=== PATIENT | female | born 1990 | race Caucasian/White ===

== ENCOUNTER 2019-11-08 14:04 | Emergency (ER) | payer OTHER, SELFPAY ==
[2019-11-08 14:05] VITALS: BP 141/98; PULSE 118; RESP 20; TEMP 36.8; O2SAT 100; BMI 44.2
--- NOTE | 2019-11-08 14:31 | HMH.EDUTC ---
[facility] Disposition Clinical Impression: Strep throat Otitis media Qualifiers: Otitis media type: unspecified Laterality: left Qualified Code(s): H66.92 - Otitis media, unspecified, left ear Disposition: Home, Self-Care Condition on Discharge: Good Instructions: Middle Ear Infections (Alternative Therapy), Sore Throat, Middle Ear Infection, Cough, Amoxicillin, DI for Strep Throat, Strep Throat Additional Instructions: *Monitor Temp, Over the counter Motrin or Tylenol as directed/as needed Tylenol every 4 hours and Motrin every 6 hours (as long as your family doctor has told you that you can take it) for fever or pain. and straight to ER if unable to lower temp less than 101.0 after medication given *Warm salt water gargles may help to soothe the throat *Throat Lozenges *Warm fluids *Sleep elevated *Humidifier/Vaporizer *If you did not take Penicillin shot or was unable to, start taking antibiotic immediately and make sure that you take it for the FULL length of time although you should start to feel better in 24-48 hours *change toothbrush and toothpaste 24-48 hours after starting to take antibiotics so you do not reinfect yourself Monitor Temp. Tylenol and/or Ibuprofen as needed. ER if fever is no less than 101 despite alternating Tylenol and Ibuprofen * Encourage fluids, water, Gatorade, powerade, pedialyte if /toddler/or child *Cold fluids, popsicles and ice cream may feel good on his throat Your throat swab was sent for culture. Those results are typically sent to your primary care. Be sure to follow up in 2-3 days with your family doctor/primary care physician if no improvement so they can review those result and treat if necessary. If you don?t have a primary care doctor, I recommend you get one but in the mean time, you will have to return to a walk in clinic Follow up IMMEDIATELY for new or worsening symptoms or no Noticeable improvement over the next 48-72 hours. 911 for difficulty breathing or swallowing Prescriptions: Amoxicillin [Amoxicillin 500mg Cap] 500 mg PO TID #30 cap Transmission Status: Pending to [facility] Referrals: Jesenia Whitman PA [Primary Care Provider] - As needed Time of Disposition: 14:56 Medical Decision Making - George Inquiry Pt receiving controlled substance: No George was queried for this patient: No Vital Signs: 11/08/19 14:05 Temperature 98.2 F Temperature Source Oral Pulse Rate [Radial] 118 H Respiratory Rate 20 Blood Pressure [Right Arm] 141/98 H Blood Pressure Mean [Right Arm] 112 Blood Pressure Source [Right Arm] Automatic Cuff Blood Pressure Position [Right Arm] Sitting 02 Sat by Pulse Oximetry 100 Oxygen Delivery Method Room Air - Lab Data Lab results reviewed: Yes: I reviewed the patient's lab results. Lab Results 11/08/19 14:36: Strep Scn Rapid Clinic Positive A [facility] HPI - General Stated complaint: Cough,bilateral ear pain Time Seen by Provider: 11/08/19 14:31 Mode of Arrival: Ambulatory Source of Information: Patient Limitations: No Limitations Description of Symptoms (Recalled from Triage Doc. by RN): COUGH, EAR PAIN, WEAKNESS X 2 DAYS HEENT Symptoms (Recalled from RN notes): Yes Resp Symptoms (Recalled from RN notes): No Skin Symptoms (Recalled from RN notes): No MS Symptoms (Recalled from RN notes): No Functional Status (Recalled from RN notes): WNL - History of Present Illness Provider Complaint: Patient states that she has been having pain in both ears but worse in her left ear State that also she has been having cough and throat irritation Denies known fever, states that she has felt more tired for the last couple of days Denies known exposure to anyone with COVID19 - Related Data Previous Rx's Medication Instructions Recorded phentermine 37.5 mg tablet 37.5 mg PO DAILY #30 tab 12/23/18 Amoxicillin [Amoxicillin 500mg 500 mg PO TID #30 cap 11/08/19 Cap] Allergies Allergy/AdvReac Type Severity R
[2019-11-08 14:48] LABS: UTC Strep Screen (Rapid) Positive (Negative)
[2019-11-08 15:07] VITALS: BP 141/98; PULSE 118; RESP 20; TEMP 36.8; O2SAT 100
== END 2019-11-08 15:08 | disposition home or self-care (01) ==
PROVIDERS: Emergency Provider Nurse Practitioner; PCP Physician Assistant
DX: J02.0 Streptococcal pharyngitis (principal); H66.92 Otitis media, unspecified, left ear; F17.210 Nicotine dependence, cigarettes, uncomplicated
CPT/HCPCS: 87880; 99201; 99202

== ENCOUNTER → 2020-02-04 12:14 | Outpatient (CLI) | payer OTHER, SELFPAY ==
--- NOTE | 2020-02-04 12:35 | ECG_ITS ---
APPROVED REPORT Exam: Resting ECG HR:61 bpm ECG Measurements Heart Rate 61 AXES CO 160 P 33 QRSd 90 QRS 68 QT 388 T 39 QTc 390 <Conclusion> Sinus rhythm with marked sinus arrhythmia Otherwise normal ECG Electronically signed by : Abebe Frederick, 02/06/2020 12:31:19
[2020-02-04 12:36] LABS: Basophils % 0.3 % (0.1-2.0); Eosinophils # 0.3 K/mm3 (0.0-0.4); Eosinophils % 2.1 % (0.1-12.0); Hematocrit 39.7 % (37.0-47.0); Hemoglobin 13.4 g/dL (12.2-16.2); Lymphocytes # 2.9 K/mm3 (0.7-4.5); Lymphocytes % 23.2 % (10-50); Mean Corpuscular HGB Conc 33.8 g/dL (31.8-35.4); Mean Corpuscular Hemoglobin 29.3 pg (27.0-31.2); Mean Corpuscular Volume 86.7 fl (81-99); Monocytes # 0.6 K/mm3 (0.1-1.0); Monocytes % 4.7 % (1.7-9.3); Neutrophils # 8.8 K/mm3 (1.8-7.8); Neutrophils % 69.7 % (37.0-80.0); Platelet Count 304 K/mm3 (142-424); Red Blood Count 4.58 M/mm3 (4.20-5.40); Red Cell Distribution Width 14.2 % (11.5-17.5); White Blood Count 12.6 K/mm3 (4.8-10.8)
[2020-02-04 13:00] LABS: Chloride 104 mmol/L (98-107); Sodium 139 mmol/L (136-145)
[2020-02-04 13:01] LABS: Potassium 4.2 mmoL/L (3.5-5.1)
[2020-02-04 13:04] LABS: Anion Gap 13.2 mEq/L (5-15); Blood Urea Nitrogen 10 mg/dl (7-17); Calcium 9.3 mg/dl (8.4-10.2); Carbon Dioxide 26 mmol/L (22.0-30.0); Estimated Glomerular Filt Rate 84 ml/min (>60); GFR (African American) 101 ML/MIN (>60); Glucose 124 mg/dl (74-100)
[2020-02-04 13:52] LABS: Coronavirus 19 IgG Antibody Negative (Negative); Coronavirus 19 IgM Antibody Negative (Negative)
[2020-02-04 16:59] LABS: HCG Qualitative, Serum Negative (Negative)
== END ==
PROVIDERS: Visit Provider Otolaryngology
DX: Z01.818 Encounter for other preprocedural examination (principal); H65.23 Chronic serous otitis media, bilateral; J34.3 Hypertrophy of nasal turbinates
CPT/HCPCS: 36415; 80048; 84703; 85025; 86328; 93005

== ENCOUNTER 2020-02-05 06:28 | Day surgery (SDC) | payer OTHER, SELFPAY ==
[2020-02-03 12:24] VITALS: BMI 41.6
[2020-02-05] VITALS (9 sets, daily range): BP systolic 124–146; BP diastolic 58–83; PULSE 74–86; RESP 12–20; TEMP 36.3–36.7; O2SAT 90–99
--- NOTE | 2020-02-05 09:00 | HMH.ANESCL ---
[facility] Anesthesia Checklist - Structural Data Admitted From: Home Planned Operative Procedure/s: bmt Consent for Planned Operative Procedure(s) Verified: Yes - Additional verifications Anesthesia Reactions: No Hx Blood Transfusions: No Blood Transfusion Reaction: No - Airway Assessment C-Spine Mobility Assessed: Yes TMJ Mobility Assessed: Yes Dentition: Good Dentition - Neurological Assessment Level of Consciousness: Awake, Alert, Appropriate - Anesthesia Plan Anesthesia Risk discussed: Yes Anesthesia Plan: Verified ASA Class: III Anesthesia Type: General [facility] History I have reviewed the patient's past medical history: Yes Medical History: Denies:: Cancer, Diabetes Mellitus Type 1, Diabetes Mellitus Type 2, MRSA, Seizures *Have you ever received a pneumonia vaccine?: No *Have you received a flu vaccine this season?: No Other Medical History: Denies: Blood Transfusion Reaction Anesthesia experience/problems:: none Laterality Cases: Bilateral: Myringotomy (Ear Tubes) Other Surgeries: Yes: Tubal Ligation Amputation: No Fractures: No - *Social History Last grade of school completed: High school graduate Smoking Status: Current every day smoker Tobacco Type: cigarettes # Packs/Day (cigarettes): 1 Alcohol Intake: never Substance Use Type: denies use *Occupational Status:: unemployed Housing: house Household Members: spouse, children *Travel in the last 8 weeks: None Family Hx:: Diabetes, Heart Attack
--- NOTE | 2020-02-05 09:01 | HMH.ANESI ---
[facility] Anesthesia Record Part I Intake, IV Amount: 500 Estimated blood loss (mL): 0 Urine output (mL): 0 Blood Pressure: 140/58 SaO2: 93 Pulse Rate: 74 Respiratory Rate: 14 Temperature: 97.8 F Patient is:: Awake, Stable Stable to PACU at:: 09:00
--- NOTE | 2020-02-05 12:54 | P.OP_ITS ---
Date of procedure: 02/05/20 Pre-op Diagnosis:: Bilateral serous otitis media Post-op Diagnosis:: Same Procedure performed:: Bilateral Myringotomy and tube Surgeon:: Castillo Rondon MD CELLULAR TOWER CLIMBER:: Bobby Cisneros Anesthesia: GETA Estimated blood loss (mL): 0 Operative findings:: Same Operative note:: With the patient under general anesthesia having been given 1 g of Ancef and 12 mg of Decadron and using the operating microscope for all the procedure the right ear was prepped and draped. An incision was made in the posterior inferior quadrant serous fluid was aspirated and a [place] T-tube was placed Ciprodex drops were applied. The left ear was done in the same fashion a [place] T-tube was placed and Ciprodex drops were applied there was a moderate amount of serous fluid in the left ear as well the patient tolerated the procedure well and was sent to recovery in good general condition Condition: stable Disposition: PACU Complications:: None
--- NOTE | 2020-02-06 09:35 | HMH.ANESII ---
[facility] Anesthesia Record Part II Discharge Time: 09:30 Destination: [facility] PACU nurse assessment reviewed?: Yes Patient Condition:: Good Anesthesia Complications:: None Swallowing reflex intact?: Yes Cyanosis?: No Blood Pressure: 146/80 Pulse Rate: 86 Temperature: 97.9 F Mental Status: Alert & Oriented Pain level:: 0 Nausea and/or vomitting:: None Intake, IV Amount: 1,000
[2020-02-06 09:36] VITALS: BP 146/80; PULSE 86; TEMP 36.6
== END 2020-02-05 09:54 | disposition home or self-care (01) ==
LOC: OR 06:30
PROVIDERS: PCP Physician Assistant; Visit Provider Otolaryngology
PROC: (CPT 69436; principal; 2020-02-05 08:15)
DX: H65.06 Acute serous otitis media, recurrent, bilateral (principal); Z72.0 Tobacco use; Z79.899 Other long term (current) drug therapy; G47.00 Insomnia, unspecified
CPT/HCPCS: 69436; 96374; 96375; J2405

== ENCOUNTER → 2021-01-27 19:29 | Outpatient (CLI) | payer OTHER, SELFPAY ==
[2021-01-27 19:55] LABS: Basophils # 0.1 K/mm3 (0-0.2); Basophils % 0.5 % (0.1-2.0); Eosinophils # 0.2 K/mm3 (0.0-0.4); Eosinophils % 1.7 % (0.1-12.0); Hematocrit 39.4 % (37.0-47.0); Hemoglobin 12.5 g/dL (12.2-16.2); Lymphocytes # 3.1 K/mm3 (0.7-4.5); Lymphocytes % 27.6 % (10-50); Mean Corpuscular HGB Conc 31.8 g/dL (31.8-35.4); Mean Corpuscular Hemoglobin 26.8 pg (27.0-31.2); Mean Corpuscular Volume 84.3 fl (81-99); Mean Platelet Volume 8.1 fl (7.4-10.4); Monocytes # 0.6 K/mm3 (0.1-1.0); Monocytes % 4.9 % (1.7-9.3); Neutrophils # 7.4 K/mm3 (1.8-7.8); Neutrophils % 65.3 % (37.0-80.0); Platelet Count 315 K/mm3 (142-424); Red Blood Count 4.67 M/mm3 (4.20-5.40); White Blood Count 11.3 K/mm3 (4.8-10.8)
[2021-01-27 19:57] LABS: Chloride 105 mmol/L (98-107)
[2021-01-27 19:58] LABS: Potassium 4.5 mmoL/L (3.5-5.1); Sodium 139 mmol/L (136-145)
[2021-01-27 20:00] LABS: Alanine Aminotransferase 35 U/L (12-78); Anion Gap 12.5 mEq/L (5-15); Aspartate Amino Transferase 35 U/L (14-36); Bilirubin,Total 0.3 mg/dl (0.2-1.3); Blood Urea Nitrogen 5 mg/dl (7-17); Carbon Dioxide 26 mmol/L (22.0-30.0); Estimated Glomerular Filt Rate 83 ml/min (>60); GFR (African American) 101 ML/MIN (>60)
[2021-01-27 20:01] LABS: Albumin Level 4.2 g/dl (3.5-5.0); Albumin/Globulin Ratio 1.3 (1.1-1.8); Alkaline Phosphatase 136 U/L (38-126); Calcium 9.5 mg/dl (8.4-10.2); Chol/HDL Ratio 7.6 (1-3.5); Cholesterol 205 mg/dl (140-200); Globulin 3.2 g/dL (1.3-3.2); Glucose 125 mg/dl (74-100); HDL Cholesterol 27 mg/dl (40-60); Total Protein,Serum 7.4 g/dl (6.3-8.2); Triglycerides 172 mg/dl (30-150); VLDL Cholesterol 34 mg/dL (0-40)
[2021-01-27 20:12] LABS: Direct LDL Cholesterol 137.69 mg/dL (100-129)
[2021-01-27 20:19] LABS: T4 (Thyroxine) 10.9 ug/dl (5.53-11.0)
[2021-01-27 20:32] LABS: Thyroid Stimulating Hormone 1.09 uIU/mL (0.465-4.68)
[2021-01-29 09:48] LABS: Hep A Ab, IgM Negative (Negative); Hepatitis B Core Antibody IgM Negative (Negative); Hepatitis B Surface Antigen Negative (Negative); Hepatitis C Antibody <0.1 s/co ratio (0.0-0.9)
== END ==
PROVIDERS: Visit Provider Nurse Practitioner Family
DX: G47.00 Insomnia, unspecified (principal); Z68.39 Body mass index [BMI] 39.0-39.9, adult
CPT/HCPCS: 80053; 80061; 80074; 82306; 84436; 84443; 85025

== ENCOUNTER 2023-06-07 18:11 | Emergency (ER) | payer OTHER, SELFPAY ==
[2023-06-07 18:50] VITALS: BP 145/77; PULSE 107; RESP 20; TEMP 37.9; O2SAT 97; BMI 38.9
[2023-06-07 18:57] LABS: UTC Influenza A Antigen Negative (Negative); UTC Influenza B Antigen Negative (Negative)
--- NOTE | 2023-06-07 19:14 | EXP.UTC ---
Discharge Plan Disposition Patient Disposition: Home, Self-Care Condition: Good Prescriptions Prescriptions: New ondansetron 4 mg tablet,disintegrating 4 mg PO Q8H PRN (Reason: nausea and vomiting) Qty: 10 0RF No Action phentermine [Adipex-P] 37.5 mg tablet 37.5 mg PO DAILY Qty: 30 0RF Rx Instructions: must administer 30 minutes before or 1-2 hours after breakfast omeprazole 40 mg capsule,delayed release(DR/EC) 40 mg PO DAILY 90 Days Qty: 90 0RF Rx Instructions: swallow whole; do not crush, chew, dissolve, cut, break azithromycin 250 mg tablet See Rx Instructions PO .COMPLEX Qty: 6 0RF Rx Instructions: For 250 mg dose pack: take 500 mg today (day 1), then 250 mg for 4 days (days 2-5) PO fluconazole 150 mg tablet 150 mg PO Q3D 0 Days Qty: 2 0RF Referrals Follow up/Referrals: Jesenia Whitman PA [Primary Care Provider] - See instructions Activity Restrictions/Add. Instructions Additional Instructions/Restrictions: *Monitor Temp, Over the counter Motrin or Tylenol as directed/as needed Tylenol every 4 hours and Motrin every 6 hours (as long as your family doctor has told you that you can take it) for fever or pain. and straight to ER if unable to lower temp less than 101.0 after medication given *Warm salt water gargles may help to soothe the throat *Throat Lozenges? *Warm fluids like tea with honey may help to soothe the throat? *Sleep elevated *Humidifier/Vaporizer Follow up IMMEDIATELY for new or worsening symptoms or no Noticeable improvement over the next 48-72 hours. 911 for difficulty breathing or swallowing You were tested for today for Upper Respiratory Panel with COVID19 your test result should be back in the next 24 hours you may check your results on the [facility] My Health Portal if your COVID test is positive you will need to Quarantine for 5 days Clinical Impressions Clinical Impression: Viral syndrome Stand Alone Forms Stand Alone Forms: Work/School Release Instructions Patient Instructions: DI for Viral Syndrome, DI for Fever (Symptom) -- Adult Discharge ED Provider: Lara Anderson [facility] H[place] General Stated complaint: body aches Mode of Arrival: Ambulatory Source of Information: Patient Limitations: No Limitations Time Seen by Provider: 06/07/23 19:14 Description of Symptoms (Recalled from Triage Doc. 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 including COVID and flu States that today she was feeling worse worried she may have flu or COVID so she came in to get checked Denies sore throat denies sinus pain denies abdominal pain Related Data Previous Rx's Medication Instructions Recorded phentermine 37.5 mg tablet 37.5 mg PO DAILY #30 tabs 03/10/21 (Adipex-P) omeprazole 40 mg capsule,delayed 40 mg PO DAILY 90 days #90 caps 04/05/21 release azithromycin 250 mg tablet See Rx Instructions PO .COMPLEX #6 08/02/21 tabs fluconazole 150 mg tablet 150 mg PO Q3D 2 doses #2 tabs 08/16/21 ondansetron 4 mg disintegrating 4 mg PO Q8H PRN nausea and 06/07/23 tablet vomiting #10 tabs Allergies Allergy/AdvReac Type Severity Reaction Status Date / Time No Known Allergies Allergy Verified 03/10/21 13:36 Worker's Comp Is this a Worker's Comp case?: No [facility] Disclaimer: The information contained in this section may have been updated after the patient was seen, as this information can be updated by other users. Medical History (Updated
[2023-06-07 19:39] VITALS: BP 145/77; PULSE 107; RESP 20; TEMP 37.9; O2SAT 97
[2023-06-07 19:52] LABS: Adenovirus,PCR Not Detected (NotDetected); Coronavirus 19, PCR Not Detected (NotDetected); Coronavirus 229E Not Detected (NotDetected); Coronavirus NL63 Not Detected (NotDetected); Coronavirus OC43 Not Detected (NotDetected); Coronovirus HKU1,PCR Not Detected (NotDetected); Human Metapneumovirus Not Detected (NotDetected); Influenza A, PCR Not Detected (NotDetected); Influenza AH1, 2009 Not Detected (NotDetected); Influenza AH1, PCR Not Detected (NotDetected); Influenza AH3,PCR Not Detected (NotDetected); Influenza B, PCR Not Detected (NotDetected); Parainfluenza 1, PCR Not Detected (NotDetected); Parainfluenza 2, PCR Not Detected (NotDetected); Parainfluenza 3, PCR Not Detected (NotDetected); Parainfluenza 4, PCR Not Detected (NotDetected); Respiratory Syncytial Virus Not Detected (NotDetected); Rhinovirus/Enterovirus Not Detected (NotDetected)
== END 2023-06-07 19:49 | disposition home or self-care (01) ==
PROVIDERS: Emergency Provider Nurse Practitioner; PCP Physician Assistant
DX: R11.2 Nausea with vomiting, unspecified (principal); R50.9 Fever, unspecified; M79.18 Myalgia, other site; B34.9 Viral infection, unspecified; F17.210 Nicotine dependence, cigarettes, uncomplicated; Z20.822 Contact with and (suspected) exposure to COVID-19
CPT/HCPCS: 87581; 87632; 87635; 87798; 87804; 99204; 99212; G0463

== ENCOUNTER 2024-09-29 08:55 | Outpatient (CLI) | payer OTHER, SELFPAY ==
[2024-09-29 19:51] LABS: Basophils # 0.1 K/mm3 (0-0.2); Basophils % 0.6 % (0.1-2.0); Eosinophils # 0.2 K/mm3 (0.0-0.4); Eosinophils % 2.1 % (0.1-12.0); Hematocrit 41.5 % (37.0-47.0); Hemoglobin 13.5 g/dL (12.2-16.2); Lymphocytes # 2.6 K/mm3 (0.7-4.5); Lymphocytes % 24.6 % (10-50); Mean Corpuscular HGB Conc 32.5 g/dL (31.8-35.4); Mean Corpuscular Hemoglobin 28.4 pg (27.0-31.2); Mean Corpuscular Volume 87.2 fl (81-99); Mean Platelet Volume 10.7 fl (7.4-10.4); Monocytes # 0.5 K/mm3 (0.1-1.0); Monocytes % 4.8 % (1.7-9.3); Neutrophils # 7.1 K/mm3 (1.8-7.8); Neutrophils % 67.6 % (37.0-80.0); Platelet Count 332 K/mm3 (142-424); Red Blood Count 4.76 M/mm3 (4.20-5.40); Red Cell Distribution Width 13.3 % (11.5-17.5); White Blood Count 10.5 K/mm3 (4.8-10.8)
[2024-09-29 20:08] LABS: Hemoglobin A1C 10.8 % (4.0-6.0)
[2024-09-29 20:43] LABS: Alanine Aminotransferase 52 U/L (12-78); Albumin Level 4.3 g/dl (3.5-5.0); Albumin/Globulin Ratio 1.4 (1.1-1.8); Alkaline Phosphatase 145 U/L (38-126); Anion Gap 7.5 mEq/L (5-15); Aspartate Amino Transferase 45 U/L (14-36); Bilirubin,Total 0.3 mg/dl (0.2-1.3); Blood Urea Nitrogen 8 mg/dl (7-17); Calcium 10.6 mg/dl (8.4-10.2); Carbon Dioxide 29 mmol/L (22.0-30.0); Chloride 103 mmol/L (98-107); Chol/HDL Ratio 8.6 (1-3.5); Cholesterol 232 mg/dl (140-200); Estimated Glomerular Filt Rate 113 ml/min (>60); GFR (African American) 137 ML/MIN (>60); Glucose 326 mg/dl (74-100); HDL Cholesterol 27 mg/dl (40-60); Potassium 4.5 mmoL/L (3.5-5.1); Sodium 135 mmol/L (136-145); Total Protein,Serum 7.3 g/dl (6.3-8.2); Triglycerides 397 mg/dl (30-150); VLDL Cholesterol 79 mg/dL (0-40)
[2024-09-29 20:54] LABS: Direct LDL Cholesterol 115.14 mg/dL (100-129)
[2024-09-29 21:13] LABS: Thyroid Stimulating Hormone 1.62 uIU/mL (0.465-4.68)
[2024-09-29 21:14] LABS: HIV Combo NEGATIVE (Negative)
[2024-09-29 21:22] LABS: Hepatitis C Ab Qual. W/ RFX NEGATIVE (Negative)
[2024-09-29 21:36] LABS: 25-OH Vitamin D, Total < 12.8 ng/mL (30-100)
== END 2024-09-29 23:59 | disposition home or self-care (01) ==
LOC: LAB.DROPOF 09-30 14:16
PROVIDERS: PCP Family Medicine; Visit Provider Family Medicine
DX: E66.9 Obesity, unspecified (principal); Z68.39 Body mass index [BMI] 39.0-39.9, adult; Z11.59 Encounter for screening for other viral diseases
CPT/HCPCS: 80053; 80061; 82306; 83036; 84443; 85025; 86803; 87389

== ENCOUNTER 2025-01-07 12:05 | Outpatient (CLI) | payer OTHER, SELFPAY ==
[2025-01-07 21:29] LABS: Hemoglobin A1C 11.2 % (4.0-6.0)
[2025-01-07 22:03] LABS: Alanine Aminotransferase 33 U/L (12-78); Albumin Level 4.3 g/dl (3.5-5.0); Albumin/Globulin Ratio 1.4 (1.1-1.8); Alkaline Phosphatase 116 U/L (38-126); Anion Gap 14.3 mEq/L (5-15); Aspartate Amino Transferase 33 U/L (14-36); Bilirubin,Total 0.4 mg/dl (0.2-1.3); Blood Urea Nitrogen 7 mg/dl (7-17); Calcium 9.8 mg/dl (8.4-10.2); Carbon Dioxide 26 mmol/L (22.0-30.0); Chloride 98 mmol/L (98-107); Creatinine,Serum 0.70 mg/dl (0.52-1.04); Estimated Glomerular Filt Rate 95 ml/min (>60); GFR (African American) 115 ML/MIN (>60); Globulin 3.0 g/dL (1.3-3.2); Glucose 197 mg/dl (74-100); Potassium 4.3 mmoL/L (3.5-5.1); Sodium 134 mmol/L (136-145); Total Protein,Serum 7.3 g/dl (6.3-8.2)
--- OUTSIDE RECORDS SUMMARY | 2025-01-12 12:39 | XMS_ITS | Clinical Summary ---
Author Organization Healthcare Address [address] [place] [address] Care Team Providers Care Optical Laboratory Manager Name Role Phone Brant Nj MD Primary Care Provider [phone] Family History Medical History Relation Name Comments Heart attack Other Relation Name Status Comments Other Social History Tobacco Use Types Packs/Day Years Used Date Smoking Tobacco: Every Day Comments Unknown Sex and Gender Information Value Date Recorded Sex Assigned at Not on file Legal Sex Female 8:42 PM EDT Gender Identity Not on file Sexual Orientation Not on file Last Filed Vital Signs Vital Sign Reading Time Taken Comments Blood Pressure - - Pulse - - Temperature - - Respiratory Rate - - Oxygen Saturation - - Inhaled Oxygen Concentration - - Weight 94.8 kg (208 lb 15.9 oz) 03/03/2015 1:32 PM EDT Height 162.6 cm (5' 4 ) 03/03/2015 1:32 PM EDT Body Mass Index 35.87 03/03/2015 1:32 PM EDT Plan of Treatment Not on file Care Teams Optical Laboratory Manager Relationship Specialty Start Date End Date Brant Nj MD [address] [place] [address] PCP - General 11/19/20
== END 2025-01-07 23:59 | disposition home or self-care (01) ==
LOC: LAB.DROPOF 01-12 12:06
PROVIDERS: PCP Family Medicine; Visit Provider Family Medicine
DX: E11.9 Type 2 diabetes mellitus without complications (principal)
CPT/HCPCS: 80053; 82043; 82570; 83036

== ENCOUNTER 2025-02-26 17:47 | Outpatient (CLI) | payer OTHER, SELFPAY ==
--- OUTSIDE RECORDS SUMMARY | 2025-02-26 17:49 | XMS_ITS | Clinical Summary ---
Author Organization Healthcare Address [address] [place] [address] Care Team Providers Care Oral Surgery Physician Name Role Phone Brant Nj MD Primary Care Provider [phone]- [phone] Family History Medical History Relation Name Comments [...] of Treatment Not on file Care Teams Oral Surgery Physician Relationship Specialty Start Date End Date Brant Nj MD [address] [place] [address] PCP - General 11/19/20
[2025-02-27 09:00] LABS: Influenza A, PCR Not Detected (NotDetected); Influenza B, PCR Not Detected (NotDetected)
[2025-02-27 09:40] LABS: Coronavirus 19, PCR Detected (NotDetected)
== END 2025-02-26 23:59 | disposition home or self-care (01) ==
LOC: LAB.DROPOF 17:48
PROVIDERS: PCP Family Medicine; Visit Provider Family Medicine
DX: R69 Illness, unspecified (principal)
CPT/HCPCS: 87636

== ENCOUNTER 2025-04-21 13:04 | Outpatient (CLI) | payer OTHER, SELFPAY ==
[2025-04-21 14:12] LABS: Hemoglobin A1C 7.5 % (4.0-6.0)
== END 2025-04-21 23:59 | disposition home or self-care (01) ==
LOC: LAB 13:04
PROVIDERS: PCP Family Medicine; Visit Provider Student in an Organized Health Care Education/Training Program
DX: E11.9 Type 2 diabetes mellitus without complications (principal)
CPT/HCPCS: 36415; 82043; 83036